=== PATIENT | female | born 1940 | race Caucasian/White ===

== ENCOUNTER 2017-06-13 15:14 | Observation (INO) | payer MEDICARE, BC ==
[2017-06-13] MEDS ORDERED: Sodium Chloride 0.9% 10 ML Syringe FLUSH PRN (15:27)
[2017-06-13] MEDS ORDERED: GI Cocktail Oral Solution 30 ML PO ONE (16:00)
[2017-06-13] MEDS ORDERED: Sodium Chloride 0.9% 500 ML IV ONE (16:08)
[2017-06-13] MEDS ORDERED: Albuterol/Ipratropium 3.0-0.5 MG/3 ML Neb Soln NEB ONE (16:08)
[2017-06-13] MEDS ORDERED: Aspirin 81 MG Tab.Chew PO ONE (16:09)
--- NOTE | 2017-06-13 16:15 | EDM.PDOC ---
ED HPI GENERAL MEDICAL PROBLEM - General Chief Complaint: Respiratory Problem Stated Complaint: epigastric pain, cough Time Seen by Provider: 06/13/17 15:46 Source of Information: Reports: Patient History Limitations: Reports: No Limitations - History of Present Illness INITIAL COMMENTS - FREE TEXT/NARRATIVE: Patient comes in complaining of epigastric pain located just below inferior margin of sternum. Pain started at 2pm this afternoon. Denies history of similar pain in past. Pain does not radiate anywhere. Pain improves with sitting straight up, worsens in other positions. Eating/drinking/burping/breathing does not change pain in any way. Feels like she has more "gas" today. Took OTC heartburn medication without change in symptoms. No palpitations. Normal appetite. HEENT: has had mild sore throat, right ear pain, congestion. All improving Resp: has had mild cough, improving GI: No significant changes/complaints. : negative for change. MS/Neuro: negative for changes. Denies fevers/chills. Has had cold type symptoms for approximately one week. had similar illness. He was seen in the clinic recently and given antibiotics. Family hx + for CAD/PR in patient's father and two brothers. Long hx of smoking. Currently 1PPD Lower Chest Pain Score (Numeric/FACES): 3 - Related Data Allergies Allergy/AdvReac Type Severity Reaction Status Date / Time No Known Allergies Allergy Verified 06/13/17 15:28 Home Meds: Home Meds Anastrozole [Arimidex] 1 mg PO 1400 10/31/14 [History] Aspirin [Halfprin] 1 tab PO DAILY 10/31/14 [History] Calcium Carbonate/Vitamin D3 [Calcium 600 + Vit D Tablet] 1 tab PO 1400 [History] Flaxseed 1 dose PO 1600 10/31/14 [History] Glucosamine/Msm/Chondroitin A [Chpwidolwcj-Jbhdxejyr-JND Cplt] 3 cap PO BID [History] Multivitamins [Tab-A-Emily] 1 tab PO DAILY 10/31/14 [History] Olmesartan/Hydrochlorothiazide [Benicar HCT 40-12.5 MG] 1 tab PO BEDTIME [History] Lafferty-3 Fatty Acids [Lafferty-3] 1 cap PO BID 10/31/14 [History] Simvastatin [Zocor] 1 tab PO BEDTIME 10/31/14 [History] Travoprost (Benzalkonium) [Travoprost 0.004% Eye Drop] 2.5 ml EYELF BEDTIME [History] amLODIPine [Norvasc] 10 mg PO DAILY 10/31/14 [History] Omeprazole 20 mg PO DAILY 06/13/17 [History] cloNIDine [Catapres] 0.1 mg PO BEDTIME 06/13/17 [History] Past Medical History Cardiovascular History: Reports: High Cholesterol, Hypertension Respiratory History: Reports: COPD Gastrointestinal History: Reports: GERD Other Oncologic History: Left side mastectomy. - Past Surgical History Other Female Surgeries/Procedures: x 2 Social & Family History - Tobacco Use Smoking Status *Q: Current Every Day Smoker Years of Tobacco use: 50 - Recreational Drug Use Recreational Drug Use: No ED ROS GENERAL - Review of Systems Review Of Systems: See Below Constitutional: Reports: No Symptoms HEENT: Reports: Ear Pain, Rhinitis, Throat Pain. Denies: Ear Discharge, Throat Swelling, Vertigo, Vision Change Respiratory: Reports: Cough. Denies: Shortness of Breath, Wheezing, Pleuritic Chest Pain, Sputum, Hemoptysis Cardiovascular: Reports: Chest Pain. Denies: Dyspnea on Exertion, Edema, Lightheadedness, Orthopnea, Palpitations, Syncope GI/Abdominal: Reports: No Symptoms : Reports: No Symptoms Musculoskeletal: Reports: No Symptoms Skin: Reports: No Symptoms Neurological: Reports: No Symptoms Psychiatric: Reports: No Symptoms Hematologic/Lymphatic: Reports: No Symptoms ED EXAM, GENERAL - Physical Exam Exam: See Below Exam Limited By: No Limitations General Appearance: Alert, No Apparent Distress, Obese Eye Exam: Bilateral Eye: EOMI, PERRL Ear Exam: Right Ear: TM Dull, Other (partially occluded by wax, appears to have otitis externa), Left Ear: Canal Normal, Bilateral Ear: Auricle Normal, TM normal Nose: Normal Inspection. No: Nasal Swelling, Nasal Drainage Throat/Mouth: Normal Inspection, Normal Lips, Normal Oropharynx, Normal Voice, No Airway Compromise, Other (Patient has some missing teeth, fillings in remaining teeth) Head: Atraumatic, Normocephalic Neck: Normal Inspection, Supple, Non-Tender, Full Range of Motion. No: Lymphadenopathy (L), Lymphadenopathy (R) Respiratory/Chest: No Respiratory Distress, Chest Non-Tender, Decreased Breath Sounds (throughout), Crackles (bilateral bases), Rales (bilateral bases), Rhonchi (bilateral, mild). No: Wheezing, Stridor, Accessory Muscle Use, Retractions Cardiovascular: Normal Peripheral Pulses, Regular Rate, Rhythm, No Edema, No JVD , No Murmur Peripheral Pulses: 2+: Radial (L), Radial (R) GI/Abdominal: Normal Bowel Sounds, Soft, No Distention, No Abnormal Bruit, No Mass, Other (Unable to reproduce/trigger patient's pain complaint with palpation in epigastric area) (Female) Exam: Deferred Rectal (Female) Exam: Deferred Back Exam: Normal Inspection. No: CVA Tenderness (L), Muscle Spasm, Paraspinal Tenderness, Vertebral Tenderness Extremities: Normal Inspection, Normal Range of Motion, Non-Tender, No Pedal Edema, Normal Capillary Refill Neurological: Alert, Oriented, CN II-XII Intact, Normal Cognition, No Motor/ Sensory Deficits Psychiatric: Normal Affect, Normal Mood Skin Exam: Warm, Dry, Intact, Normal Color EKG INTERPRETATION EKG Date: 06/13/17 Time: 15:17 Rhythm: NSR Rate (Beats/Min): 74 Delia: Normal P-Wave: Present QRS: Normal ST-T: Other (No changes suggestive of PR/ischemia) QT: Normal Comparison: NA - No Prior EKG Course - Orders/Labs/Meds Orders: Active Orders 24 hr Category Date Time Status EKG Documentation Completion [RC] ASDIRECTED Care 06/13/17 15:27 Active RT Aerosol Therapy [RC] ASDIRECTED Care 06/13/17 16:08 Ordered CXR [Chest 2V] [CR] Stat Exams 06/13/17 15:27 Taken UA W/MICROSCOPIC [URIN] Stat Lab 06/13/17 16:01 Uncollected Sodium Chloride 0.9% [Saline Flush] Med 06/13/17 15:27 Active 10 ml FLUSH ASDIRECTED PRN Saline Lock Insert [OM.PC] Routine Oth 06/13/17 15:27 Ordered Medication Orders Sodium Chloride (Saline Flush) 10 ml FLUSH ASDIRECTED PRN PRN Reason: Keep Vein Open Labs: Laboratory Tests 06/13/17 06/13/17 06/13/17 Range/Units 15:50 15:50 15:50 WBC 9.8 (4.0-10.2) K/uL RBC 5.56 H (3.77-5.09) M/uL Hgb 16.6 H D (11.7-15.5) g/dL Hct 48.7 H (34.0-46.0) % MCV 87.6 (84.0-98.0) fL MCH 29.9 (28.2-33.3) pg MCHC 34.1 (31.7-36.0) g/dL RDW 14.1 (11.2-14.1) % Plt Count 283 (150-350) K/uL Neut % (Auto) 74.1 (45.0-80.0) % Lymph % (Auto) 16.4 (10.0-50.0) % [place] % (Auto) 6.4 (2.0-14.0) % Eos % (Auto) 2.7 (0.0-5.0) % Baso % (Auto) 0.4 (0.0-2.0) % Neut # (Auto) 7.26 H (1.40-7.00) K/uL Lymph # (Auto) 1.61 (0.50-3.50) K/uL [place] # (Auto) 0.63 (0.00-1.00) K/uL Eos # (Auto) 0.26 (0.00-0.50) K/uL Baso # (Auto) 0.04 (0.00-0.20) K/uL D-Dimer, Quantitative 196 (0-400) ng/mL Sodium 132 L (136-145) mmol/L Potassium 3.7 (3.5-5.1) mmol/L Chloride 95 L (98-107) mmol/L Carbon Dioxide 30.9 (21.0-32.0) mmol/L BUN 8 (7-18) mg/dL Creatinine 0.49 L (0.51-1.17) mg/dL Est Cr Clr Drug Dosing 86.98 mL/min Estimated GFR (MDRD) > 60 mL/min Glucose 160 H (74-106) mg/dL Calcium 9.9 (8.5-10.1) mg/dL Total Bilirubin 0.5 (0.2-1.0) mg/dL AST 64 H (15-37) U/L ALT 147 H (12-78) U/L Alkaline Phosphatase 144 H (46-116) IU/L Creatine Kinase 73 (26-308) U/L Creatine Kinase Index 2.9 H (0.0-2.5) % CK-MB (CK-2) 2.10 (0.00-3.60) ng/mL Troponin I 0.009 (0.000-0.056) ng/mL Total Protein 8.2 (6.4-8.2) g/dL Albumin 4.1 (3.4-5.0) g/dL Lipase (73-393) U/L 06/13/17 Range/Units 15:50 WBC (4.0-10.2) K/uL RBC (3.77-5.09) M/uL Hgb (11.7-15.5) g/dL Hct (34.0-46.0) % MCV (84.0-98.0) fL MCH (28.2-33.3) pg MCHC (31.7-36.0) g/dL RDW (11.2-14.1) % Plt Count (150-350) K/uL Neut % (Auto) (45.0-80.0) % Lymph % (Auto) (10.0-50.0) % [place] % (Auto) (2.0-14.0) % Eos % (Auto) (0.0-5.0) % Baso % (Auto) (0.0-2.0) % Neut # (Auto) (1.40-7.00) K/uL Lymph # (Auto) (0.50-3.50) K/uL [place] # (Auto) (0.00-1.00) K/uL Eos # (Auto) (0.00-0.50) K/uL Baso # (Auto) (0.00-0.20) K/uL D-Dimer, Quantitative (0-400) ng/mL Sodium (136-145) mmol/L Potassium (3.5-5.1) mmol/L Chloride (98-107) mmol/L Carbon Dioxide (21.0-32.0) mmol/L BUN (7-18) mg/dL Creatinine (0.51-1.17) mg/dL Est Cr Clr Drug Dosing mL/min Estimated GFR (MDRD) mL/min Glucose (74-106) mg/dL Calcium (8.5-10.1) mg/dL Total Bilirubin (0.2-1.0) mg/dL AST (15-37) U/L ALT (12-78) U/L Alkaline Phosphatase (46-116) IU/L Creatine Kinase (26-308) U/L Creatine Kinase Index (0.0-2.5) % CK-MB (CK-2) (0.00-3.60) ng/mL Troponin I (0.000-0.056) ng/mL Total Protein (6.4-8.2) g/dL Albumin (3.4-5.0) g/dL Lipase 179 (73-393) U/L Meds: Medications Generic Name Dose Route Start Last Admin Trade Name Freq PRN Reason Stop Dose Admin Sodium Chloride 10 ml 06/13/17 15:27 Saline Flush FLUSH ASDIRECTED PRN Keep Vein Open Discontinued Medications Generic Name Dose Route Start Last Admin Trade Name Freq PRN Reason Stop Dose Admin Al Hydroxide/Mg Hydroxide 30 ml 06/13/17 16:00 06/13/17 16:09 Gi Cocktail PO 06/13/17 16:01 30 ml ONETIME ONE Administration Albuterol/Ipratropium 3 ml 06/13/17 16:08 06/13/17 16:12 Duoneb 3.0-0.5 Mg/3 Ml NEB 06/13/17 16:09 3 ml ONETIME ONE Administration Aspirin 324 mg 06/13/17 16:09 06/13/17 16:11 Aspirin PO 06/13/17 16:10 324 mg ONETIME ONE Administration Sodium Chloride 500 mls @ 500 mls/hr 06/13/17 16:08 06/13/17 16:16 Normal Saline IV 06/13/17 17:07 500 mls/hr ONETIME ONE Administration Pantoprazole Sodium 40 mg 06/13/17 16:42 06/13/17 17:10 Protonix Iv IVPUSH 06/13/17 16:43 40 mg ONETIME ONE Administration - Radiology Interpretation Free Text/Narrative:: Chest xray: left mastectomy. Fibrotic changes/atelectasis noted at bases, cannot exclude infiltrate. COPD. - Re-Assessments/Exams Free Text/Narrative Re-Assessment/Exam: EKG, Troponin, CKMB overall unremarkable. Patient's Hgb/Hct elevated, as was AST/ALT. She is not aware of previous liver issues or if she has fatty liver changes. Mild subjective improvement after patient received GI cocktail. She continued to maintain that the sternal discomfort was triggered/improved by movement and body position. Plan at this time is to admit patient for serial cardiac labs and cardiac monitoring. Patient has been afebrile, has a normal white count, and insists that her cold symptoms/cough have been improving. Pain does not appear to be linked to breathing/pleurisy. She does however have right otitis externa. Will start her on antibiotic drops for the OE. No systemic antibiotic therapy planned at this point. She did feel as though she had better breathing after receiving a Duo Neb. Patient mentioned that she has been thinking that she should start some sort of inhaler given her smoking/COPD but so far has avoided starting to use one. Will continue Q6h nebs while she is being observed and also begin short course Prednisone. Plan at this time will be to have round on patient tomorrow, and at that time they can discuss together starting therapy targeting COPD symptoms. The need for a stress test can also be considered if serial labs are negative for ischemia. Departure - Departure Time of Disposition: 17:16 Disposition: Refer to Observation Condition: Good Clinical Impression: Chest pain of uncertain etiology, Viral respiratory illness, S/P left mastectomy, Dyslipidemia COPD (chronic obstructive pulmonary disease) Qualifiers: COPD type: COPD with acute lower respiratory infection Qualified Code(s): J44.0 - Chronic obstructive pulmonary disease with acute lower respiratory infection HTN (hypertension) Qualifiers: Hypertension type: essential hypertension Qualified Code(s): I10 - Essential ( primary) hypertension GERD (gastroesophageal reflux disease) Qualifiers: Esophagitis presence: esophagitis presence not specified Qualified Code(s): K21.9 - Gastro-esophageal reflux disease without esophagitis Glaucoma Qualifiers: Glaucoma type: unspecified Laterality: unspecified laterality Qualified Code(s) : H40.9 - Unspecified glaucoma - Discharge Information Referrals: Armida Harrington PA [Primary Care Provider] - Forms: ED Department Discharge - Problem List & Annotations (1) Chest pain of uncertain etiology SNOMED Code(s): 78015905 Code(s): R07.89 - OTHER CHEST PAIN Status: Acute Priority: High Current Visit: Yes Onset Date: 06/13/17 Annotation/Comment:: Suspect GI vs MS cause. Pain improved with GI cocktail slightly. Waxes and wanes depending on patient's posture/movement. Initial cardiac workup unremarkable for obvious ischemia. Protonix given in ER. (2) COPD (chronic obstructive pulmonary disease) SNOMED Code(s): 95253226 Code(s): J44.9 - CHRONIC OBSTRUCTIVE PULMONARY DISEASE, UNSPECIFIED Status : Chronic Priority: High Current Visit: Yes Annotation/Comment:: Patient is 1PPD smoker and is getting over recent viral illness. Is not on any targeted therapy for COPD at home. Suspect some degree of exacerbation of baseline COPD with recent illness. Improved sensation of ease of breathing s/p neb in ER. Will continue nebs and start short course steroids. Qualifiers: COPD type: COPD with acute lower respiratory infection Qualified Code(s): J44.0 - Chronic obstructive pulmonary disease with acute lower respiratory infection (3) Viral respiratory illness SNOMED Code(s): 834840694 Code(s): J98.8 - OTHER SPECIFIED RESPIRATORY DISORDERS; B97.89 - OTH VIRAL AGENTS THE CAUSE OF DISEASES CLASSD ELSWHR Status: Acute Priority: Medium Current Visit: Yes Onset Date: ~06/06/17 Annotation/Comment:: Improving per patient. No fevers. Normal WBC. Improving cough. (4) GERD (gastroesophageal reflux disease) SNOMED Code(s): 228631409 Code(s): K21.9 - GASTRO-ESOPHAGEAL REFLUX DISEASE WITHOUT ESOPHAGITIS Status: Chronic Priority: Low Current Visit: Yes Annotation/Comment:: Patient notes that GERD worsens with stress. Recently had daughter pass away ( last month) and has had much greater stress since then. Notes that last time her stomach acted up was when sister . Discomfort improved with GI cocktail. Protonix given in ER. Qualifiers: Esophagitis presence: esophagitis presence not specified (5) Dyslipidemia SNOMED Code(s): 072021915 Code(s): E78.5 - HYPERLIPIDEMIA, UNSPECIFIED Status: Chronic Priority: Low Current Visit: No (6) Glaucoma SNOMED Code(s): 01002164 Code(s): H40.9 - UNSPECIFIED GLAUCOMA Status: Chronic Priority: Low Current Visit: No Qualifiers: Glaucoma type: unspecified Laterality: unspecified laterality Qualified Code(s): H40.9 - Unspecified glaucoma (7) HTN (hypertension) SNOMED Code(s): 95326545 Code(s): I10 - ESSENTIAL (PRIMARY) HYPERTENSION Status: Chronic Priority : Low Current Visit: Yes Annotation/Comment:: Recently had Clonidine dose changed. Relatively high systolic when first into ER and whenever she was changing position. Significant improvement in readings when she stayed put for awhile and was relaxing. Will monitor during stay in hospital and observe for trends. Qualifiers: Hypertension type: essential hypertension Qualified Code(s): I10 - Essential (primary) hypertension (8) S/P left mastectomy SNOMED Code(s): 699398765 Code(s): Z90.12 - ACQUIRED ABSENCE OF LEFT BREAST AND NIPPLE Status: Chronic Priority: Low Current Visit: Yes - Problem List Review Problem List Initiated/Reviewed/Updated: Yes - My Orders Last 24 Hours: My Active Orders 06/13/17 15:27 EKG Documentation Completion [RC] ASDIRECTED CXR [Chest 2V] [CR] Stat Sodium Chloride 0.9% [Saline Flush] 10 ml FLUSH ASDIRECTED PRN Saline Lock Insert [OM.PC] Routine 06/13/17 16:01 UA W/MICROSCOPIC [URIN] Stat 06/13/17 16:08 RT Aerosol Therapy [RC] ASDIRECTED - Assessment/Plan Admission H&P: Please use this note as an admission H&P Last 24 Hours: My Active Orders 06/13/17 15:27 EKG Documentation Completion [RC] ASDIRECTED CXR [Chest 2V] [CR] Stat Sodium Chloride 0.9% [Saline Flush] 10 ml FLUSH ASDIRECTED PRN Saline Lock Insert [OM.PC] Routine 06/13/17 16:01 UA W/MICROSCOPIC [URIN] Stat 06/13/17 16:08 RT Aerosol Therapy [RC] ASDIRECTED Assessment:: As above Plan: Admit to Observation. Telemetry. Serial troponins/CKMB. Repeat EKG in AM. Duo Nebs/Prednisone PO planned. to round on patient tomorrow. Further planning at that time, including stress test discussion as well as adding inhaler to help with worsening COPD-related issues.
[2017-06-13 16:29] LABS: CHLORIDE,CL 95 mmol/L (98-107); SODIUM,NA 132 mmol/L (136-145)
[2017-06-13] MEDS ORDERED: Pantoprazole 40 MG Vial IVPUSH ONE (16:42)
[2017-06-13] MEDS ORDERED: Calcium Carbonate 500 MG Tab.Chew PO PRN (17:38)
[2017-06-13] MEDS ORDERED: Acetaminophen 325 MG Tab PO PRN (17:38)
[2017-06-13] MEDS ORDERED: predniSONE 20 MG Tab PO ONE (17:42)
[2017-06-13] MEDS: Nicotine 21 MG/24 Hr Patch TRDERM SCH (18:06)
[2017-06-13] MEDS: Albuterol/Ipratropium 3.0-0.5 MG/3 ML Neb Soln NEB SCH (19:53)
[2017-06-13] MEDS ORDERED: TRAVOPROST EYELF SCH (20:00)
[2017-06-13] MEDS ORDERED: Hydrochlorothiazide 25 MG Tab PO SCH (20:00)
[2017-06-13] MEDS ORDERED: Olmesartan 20 MG Tab PO SCH (20:00)
[2017-06-13] MEDS ORDERED: Simvastatin 20 MG Tab PO SCH (20:00)
[2017-06-13] MEDS ORDERED: cloNIDine 0.1 MG Tab PO SCH (20:00)
[2017-06-13] MEDS ORDERED: Temazepam 15 MG Cap PO PRN (23:00)
[2017-06-14] MEDS ORDERED: Albuterol/Ipratropium 3.0-0.5 MG/3 ML Neb Soln NEB SCH
[2017-06-14] MEDS: Albuterol/Ipratropium 3.0-0.5 MG/3 ML Neb Soln NEB SCH ×2 (00:53→07:18)
[2017-06-14] MEDS: Nicotine 21 MG/24 Hr Patch TRDERM SCH (07:18)
[2017-06-14] MEDS ORDERED: predniSONE 20 MG Tab PO ONE (08:00)
[2017-06-14] MEDS ORDERED: amLODIPine 5 MG Tab PO SCH (08:00)
[2017-06-14] MEDS ORDERED: Aspirin 81 MG Tab.EC PO SCH (08:00)
[2017-06-14] MEDS ORDERED: Anastrozole 1 MG Tab PO SCH (14:00)
[2017-06-14] MEDS ORDERED: Metoprolol Tartrate 25 MG Tab PO ONE (15:00)
[2017-06-14] MEDS ORDERED: cefTRIAXone 1 GM Vial IVPUSH ONE (15:00)
--- NOTE | 2017-06-14 15:09 | PCM.PN ---
- General Info Date of Service: 06/14/17 Functional Status: Reports: Pain Controlled - Review of Systems General: Reports: No Symptoms HEENT: Reports: No Symptoms Pulmonary: Reports: No Symptoms Cardiovascular: Reports: No Symptoms Gastrointestinal: Reports: No Symptoms Genitourinary: Reports: No Symptoms Musculoskeletal: Reports: No Symptoms Skin: Reports: No Symptoms Neurological: Reports: No Symptoms Psychiatric: Reports: No Symptoms - Patient Data Vitals - Most Recent: Last Vital Signs Temp 98.4 F 06/14/17 12:00 Pulse 89 06/14/17 12:00 Resp 18 06/14/17 03:36 BP 150/67 H 06/14/17 12:00 Pulse Ox 95 06/14/17 12:00 Weight - Most Recent: 157 lb I&O - Last 24 Hours: Intake & Output 06/14/17 06/14/17 06/14/17 06:59 14:59 22:59 Intake Total 900 720 Output Total 550 360 Balance 350 360 Lab Results Last 24 Hours: Laboratory Results - last 24 hr 06/13/17 06/13/17 06/14/17 Range/Units 17:30 22:15 06:58 Creatine Kinase 71 68 (26-308) U/L Creatine Kinase Index 2.7 H 2.6 H (0.0-2.5) % CK-MB (CK-2) 1.90 1.80 (0.00-3.60) ng/mL Troponin I 0.010 0.011 (0.000-0.056) ng/mL Specimen Type Urincc Urine Color Yellow Urine Appearance Clear Urine pH 6.5 (5.0-9.0) Ur Specific [place] 1.010 (1.005-1.030) Urine Protein Negative (NEGATIVE) mg/dL Urine Glucose (UA) Negative (NEGATIVE) mg/dL Urine Ketones Negative (NEGATIVE) mg/dL Urine Occult Blood Negative (NEGATIVE) Urine Nitrite Negative (NEGATIVE) Urine Bilirubin Negative (NEGATIVE) Urine Urobilinogen 0.2 (0.2-1.0) E.U./dL Ur Leukocyte Esterase Negative (NEGATIVE) Urine RBC 0-5 /HPF Urine WBC Not seen /HPF Ur Epithelial Cells Rare /LPF Urine Bacteria Not seen (NONE TO FEW) /HPF Med Orders - Current: Current Medications Acetaminophen (Tylenol) 650 mg PO Q4H PRN PRN Reason: analgesia/fever Albuterol/Ipratropium (Duoneb 3.0-0.5 Mg/3 Ml) 3 ml NEB Q8HRRT [facility] Last Admin: 06/14/17 07:18 Dose: 3 ml Amlodipine Besylate (Norvasc) 10 mg PO DAILY [facility] Last Admin: 06/14/17 07:19 Dose: 10 mg Anastrozole (Arimidex) 1 mg PO DAILY@1400 [facility] Aspirin (Halfprin) 81 mg PO DAILY [facility] Last Admin: 06/14/17 07:19 Dose: 81 mg Calcium Carbonate/Glycine (Tums) 500 mg PO Q4H PRN PRN Reason: Dyspepsia Clonidine HCl (Catapres) 0.1 mg PO BEDTIME [facility] Last Admin: 06/13/17 19:52 Dose: 0.1 mg Hydrochlorothiazide (Hydrochlorothiazide) 12.5 mg PO BEDTIME [facility] Last Admin: 06/13/17 19:53 Dose: 12.5 mg Nicotine (Habitrol) 21 mg TRDERM DAILY [facility] Last Admin: 06/14/17 07:18 Dose: 21 mg Non-Formulary Medication (Travoprost (Benzalkonium) [Travoprost 0.004% Eye Drop] ) 2.5 ml EYELF BEDTIME [facility] Olmesartan (Benicar) 40 mg PO BEDTIME [facility] Last Admin: 06/13/17 19:52 Dose: 40 mg Simvastatin (Zocor) 20 mg PO BEDTIME [facility] Last Admin: 06/13/17 19:54 Dose: 20 mg Sodium Chloride (Saline Flush) 10 ml FLUSH ASDIRECTED PRN PRN Reason: Keep Vein Open Temazepam (Restoril) 15 mg PO BEDTIME PRN PRN Reason: Sleep Last Admin: 06/13/17 23:14 Dose: 15 mg Discontinued Medications Al Hydroxide/Mg Hydroxide (Gi Cocktail) 30 ml PO ONETIME ONE Stop: 06/13/17 16:01 Last Admin: 06/13/17 16:09 Dose: 30 ml Albuterol/Ipratropium (Duoneb 3.0-0.5 Mg/3 Ml) 3 ml NEB ONETIME ONE Stop: 06/13/17 16:09 Last Admin: 06/13/17 16:12 Dose: 3 ml Albuterol/Ipratropium (Duoneb 3.0-0.5 Mg/3 Ml) 3 ml NEB Q8HRRT [facility] Aspirin (Aspirin) 324 mg PO ONETIME ONE Stop: 06/13/17 16:10 Last Admin: 06/13/17 16:11 Dose: 324 mg Ceftriaxone Sodium (Rocephin) 1 gm IVPUSH ONETIME ONE Stop: 06/14/17 15:01 Sodium Chloride (Normal Saline) 500 mls @ 500 mls/hr IV ONETIME ONE Stop: 06/13/17 17:07 Last Admin: 06/13/17 16:16 Dose: 500 mls/hr Metoprolol Tartrate (Lopressor) 25 mg PO ONETIME ONE Stop: 06/14/17 15:01 Pantoprazole Sodium (Protonix Iv) 40 mg IVPUSH ONETIME ONE Stop: 06/13/17 16:43 Last Admin: 06/13/17 17:10 Dose: 40 mg Prednisone (Prednisone) 40 mg PO ONETIME ONE Stop: 06/13/17 17:43 Last Admin: 06/13/17 18:06 Dose: 40 mg Prednisone (Prednisone) 40 mg PO ONETIME ONE Stop: 06/14/17 08:01 Last Admin: 06/14/17 07:19 Dose: 40 mg - Exam General: Alert, Cooperative, No Acute Distress HEENT: Mucous Membr. Moist/[place] Neck: Trachea Midline, No JVD Lungs: Normal Respiratory Effort, Decreased Breath Sounds Cardiovascular: Regular Rate, Regular Rhythm GI/Abdominal Exam: Normal Bowel Sounds, Soft, Non-Tender, No Distention (Female) Exam: Deferred Back Exam: Normal Inspection Extremities: Normal Inspection, Non-Tender, No Pedal Edema Skin: Warm, Dry, Intact Neurological: No New Focal Deficit Psy/Mental Status: Alert, Normal Affect, Normal Mood - Problem List & Annotations (1) Chest pain of uncertain etiology SNOMED Code(s): 13233105 Code(s): R07.89 - OTHER CHEST PAIN Status: Acute Priority: High Current Visit: Yes Onset Date: 06/13/17 Annotation/Comment:: Suspect GI vs MS cause. Pain improved with GI cocktail slightly. Waxes and wanes depending on patient's posture/movement. Initial cardiac workup unremarkable for obvious ischemia. Protonix given in ER. (2) Otitis externa of right ear SNOMED Code(s): 6618547 Code(s): H60.91 - UNSPECIFIED OTITIS EXTERNA, RIGHT EAR Status: Acute Current Visit: Yes (3) Viral respiratory illness SNOMED Code(s): 302989808 Code(s): J98.8 - OTHER SPECIFIED RESPIRATORY DISORDERS; B97.89 - OTH VIRAL AGENTS THE CAUSE OF DISEASES CLASSD ELSWHR Status: Acute Priority: Medium Current Visit: Yes Onset Date: ~06/06/17 Annotation/Comment:: Improving per patient. No fevers. Normal WBC. Improving cough. (4) COPD (chronic obstructive pulmonary disease) SNOMED Code(s): 38939127 Code(s): J44.9 - CHRONIC OBSTRUCTIVE PULMONARY DISEASE, UNSPECIFIED Status : Chronic Priority: High Current Visit: Yes Qualifiers: COPD type: COPD with acute lower respiratory infection Qualified Code(s): J44.0 - Chronic obstructive pulmonary disease with acute lower respiratory infection Annotation/Comment:: Patient is 1PPD smoker and is getting over recent viral illness. Is not on any targeted therapy for COPD at home. Suspect some degree of exacerbation of baseline COPD with recent illness. Improved sensation of ease of breathing s/p neb in ER. Will continue nebs and start short course steroids. (5) GERD (gastroesophageal reflux disease) SNOMED Code(s): 299298553 Code(s): K21.9 - GASTRO-ESOPHAGEAL REFLUX DISEASE WITHOUT ESOPHAGITIS Status: Chronic Priority: Low Current Visit: Yes Qualifiers: Esophagitis presence: esophagitis presence not specified Qualified Code(s) : K21.9 - Gastro-esophageal reflux disease without esophagitis Annotation/Comment:: Patient notes that GERD worsens with stress. Recently had daughter pass away (last month) and has had much greater stress since then. Notes that last time her stomach acted up was when sister . Discomfort improved with GI cocktail. Protonix given in ER. (6) HTN (hypertension) SNOMED Code(s): 20768844 Code(s): I10 - ESSENTIAL (PRIMARY) HYPERTENSION Status: Chronic Priority : Low Current Visit: Yes Qualifiers: Hypertension type: essential hypertension Qualified Code(s): I10 - Essential (primary) hypertension Annotation/Comment:: Recently had Clonidine dose changed. Relatively high systolic when first into ER and whenever she was changing position. Significant improvement in readings when she stayed put for awhile and was relaxing. Will monitor during stay in hospital and observe for trends. (7) S/P left mastectomy SNOMED Code(s): 646067212 Code(s): Z90.12 - ACQUIRED ABSENCE OF LEFT BREAST AND NIPPLE Status: Chronic Priority: Low Current Visit: Yes (8) Dyslipidemia SNOMED Code(s): 264487670 Code(s): E78.5 - HYPERLIPIDEMIA, UNSPECIFIED Status: Chronic Priority: Low Current Visit: No (9) Glaucoma SNOMED Code(s): 91724305 Code(s): H40.9 - UNSPECIFIED GLAUCOMA Status: Chronic Priority: Low Current Visit: No Qualifiers: Glaucoma type: unspecified Laterality: unspecified laterality Qualified Code(s): H40.9 - Unspecified glaucoma (10) Hyponatremia SNOMED Code(s): 77724539 Code(s): E87.1 - HYPO-OSMOLALITY AND HYPONATREMIA Status: Chronic Current Visit: No - Problem List Review Problem List Initiated/Reviewed/Updated: Yes - My Orders Last 24 Hours: My Active Orders 06/14/17 15:01 Discontinue Telemetry Monitoring [Cardiac Monitoring Discontinue] [RC] Click to Edit 06/14/17 15:02 CMP [COMPREHENSIVE METABOLIC PN,CMP] [CHEM] Routine 06/14/17 15:03 CBC WITH AUTO DIFF [HEME] Routine - Plan Plan:: 06/14/2017 Becki Tatum MD Feels better. No pain. Troponin negative. Long discussion regarding blood pressure medications options and hyponatremia. Wanting and ready for discharge.
[2017-06-14 15:12] VITALS: BP 156/60
--- NOTE | 2017-06-14 15:19 | PCM.DCSUM1 ---
Discharge Summary - Discharge Data Discharge Date: 06/14/17 Discharge Disposition: Home, Self-Care 01 Condition: Good - Discharge Diagnosis/Problem(s) (1) Chest pain of uncertain etiology SNOMED Code(s): 57876270 ICD Code: R07.89 - OTHER CHEST PAIN Status: Acute Priority: High Current Visit: Yes Onset Date: 06/13/17 Problem Details: Suspect GI vs MS cause. Pain improved with GI cocktail slightly. Waxes and wanes depending on patient's posture/movement. Initial cardiac workup unremarkable for obvious ischemia. Protonix given in ER. (2) Otitis externa of right ear SNOMED Code(s): 4293685 ICD Code: H60.91 - UNSPECIFIED OTITIS EXTERNA, RIGHT EAR Status: Acute Current Visit: Yes (3) Viral respiratory illness SNOMED Code(s): 392048046 ICD Code: J98.8 - OTHER SPECIFIED RESPIRATORY DISORDERS; B97.89 - OTH VIRAL AGENTS THE CAUSE OF DISEASES CLASSD ELSWHR Status: Acute Priority: Medium Current Visit: Yes Onset Date: ~06/06/17 Problem Details: Improving per patient. No fevers. Normal WBC. Improving cough. (4) COPD (chronic obstructive pulmonary disease) SNOMED Code(s): 48192402 ICD Code: J44.9 - CHRONIC OBSTRUCTIVE PULMONARY DISEASE, UNSPECIFIED Status : Chronic Priority: High Current Visit: Yes Problem Details: Patient is 1PPD smoker and is getting over recent viral illness. Is not on any targeted therapy for COPD at home. Suspect some degree of exacerbation of baseline COPD with recent illness. Improved sensation of ease of breathing s/p neb in ER. Will continue nebs and start short course steroids. Qualifiers: COPD type: COPD with acute lower respiratory infection Qualified Code(s): J44.0 - Chronic obstructive pulmonary disease with acute lower respiratory infection (5) GERD (gastroesophageal reflux disease) SNOMED Code(s): 288444716 ICD Code: K21.9 - GASTRO-ESOPHAGEAL REFLUX DISEASE WITHOUT ESOPHAGITIS Status: Chronic Priority: Low Current Visit: Yes Problem Details: Patient notes that GERD worsens with stress. Recently had daughter pass away (last month ) and has had much greater stress since then. Notes that last time her stomach acted up was when sister . Discomfort improved with GI cocktail. Protonix given in ER. Qualifiers: Esophagitis presence: esophagitis presence not specified Qualified Code(s) : K21.9 - Gastro-esophageal reflux disease without esophagitis (6) HTN (hypertension) SNOMED Code(s): 82293096 ICD Code: I10 - ESSENTIAL (PRIMARY) HYPERTENSION Status: Chronic Priority : Low Current Visit: Yes Problem Details: Recently had Clonidine dose changed. Relatively high systolic when first into ER and whenever she was changing position. Significant improvement in readings when she stayed put for awhile and was relaxing. Will monitor during stay in hospital and observe for trends. Qualifiers: Hypertension type: essential hypertension Qualified Code(s): I10 - Essential (primary) hypertension (7) S/P left mastectomy SNOMED Code(s): 004798821 ICD Code: Z90.12 - ACQUIRED ABSENCE OF LEFT BREAST AND NIPPLE Status: Chronic Priority: Low Current Visit: Yes (8) Dyslipidemia SNOMED Code(s): 980678811 ICD Code: E78.5 - HYPERLIPIDEMIA, UNSPECIFIED Status: Chronic Priority: Low Current Visit: No (9) Glaucoma SNOMED Code(s): 23397167 ICD Code: H40.9 - UNSPECIFIED GLAUCOMA Status: Chronic Priority: Low Current Visit: No Qualifiers: Glaucoma type: unspecified Laterality: unspecified laterality Qualified Code(s): H40.9 - Unspecified glaucoma (10) Hyponatremia SNOMED Code(s): 91442790 ICD Code: E87.1 - HYPO-OSMOLALITY AND HYPONATREMIA Status: Chronic Current Visit: No - Patient Instructions Diet: Heart Healthy Diet Activity: As Tolerated Driving: May Drive Today Showering/Bathing: May Shower Other/Special Instructions: We will call you with an appointment at [facility] for next week. - Discharge Plan Prescriptions/Med Rec: Carvedilol [Coreg] 12.5 mg PO BID #90 tablet Cefuroxime [Ceftin] 500 mg PO BID #14 tablet Furosemide [Lasix] 20 mg PO BEDTIME #90 tablet Ipratropium/Albuterol Sulfate [Combivent Respimat Inhal [place]] 4 gm IH QID PRN # 3 aer.w.adap PRN Reason: Wheezing Olmesartan [Benicar] 40 mg PO BEDTIME #90 tablet Home Medications: Home Meds Anastrozole [Arimidex] 1 mg PO 1400 10/31/14 [History] Aspirin [Halfprin] 1 tab PO DAILY 10/31/14 [History] Calcium Carbonate/Vitamin D3 [Calcium 600 + Vit D Tablet] 1 tab PO 1400 [History] Flaxseed 1 dose PO 1600 10/31/14 [History] Glucosamine/Msm/Chondroitin A [Rncipvjskor-Tnandbddh-LTI Cplt] 3 cap PO BID [History] Multivitamins [Tab-A-Emily] 1 tab PO DAILY 10/31/14 [History] Lanagan-3 Fatty Acids [Lanagan-3] 1 cap PO BID 10/31/14 [History] Simvastatin [Zocor] 1 tab PO BEDTIME 10/31/14 [History] Travoprost (Benzalkonium) [Travoprost 0.004% Eye Drop] 2.5 ml EYELF BEDTIME [History] amLODIPine [Norvasc] 10 mg PO DAILY 10/31/14 [History] Omeprazole 20 mg PO DAILY 06/13/17 [History] cloNIDine [Catapres] 0.1 mg PO BEDTIME 06/13/17 [History] Calcium Carbonate [Tums] 500 mg PO Q4H PRN tab.chew 06/14/17 [Rx] Carvedilol [Coreg] 12.5 mg PO BID #90 tablet 06/14/17 [Rx] Cefuroxime [Ceftin] 500 mg PO BID #14 tablet 06/14/17 [Rx] Furosemide [Lasix] 20 mg PO BEDTIME #90 tablet 06/14/17 [Rx] Ipratropium/Albuterol Sulfate [Combivent Respimat Inhal [place]] 4 gm IH QID PRN # 3 aer.w.adap 06/14/17 [Rx] Olmesartan [Benicar] 40 mg PO BEDTIME #90 tablet 06/14/17 [Rx] Forms: ED Department Discharge Referrals: Armida Harrington PA [Primary Care Provider] - - Discharge Summary/Plan Comment DC Time >30 min.: No - Patient Data Vitals - Most Recent: Last Vital Signs Temp 98.4 F 06/14/17 12:00 Pulse 89 06/14/17 12:00 Resp 18 06/14/17 03:36 BP 150/67 H 06/14/17 12:00 Pulse Ox 95 06/14/17 12:00 Weight - Most Recent: 157 lb I&O - Last 24 hours: Intake & Output 06/14/17 06/14/17 06/14/17 06:59 14:59 22:59 Intake Total 900 720 Output Total 550 360 Balance 350 360 Lab Results - Last 24 hrs: Laboratory Results - last 24 hr 06/13/17 06/13/17 06/14/17 Range/Units 17:30 22:15 06:58 Creatine Kinase 71 68 (26-308) U/L Creatine Kinase Index 2.7 H 2.6 H (0.0-2.5) % CK-MB (CK-2) 1.90 1.80 (0.00-3.60) ng/mL Troponin I 0.010 0.011 (0.000-0.056) ng/mL Specimen Type Urincc Urine Color Yellow Urine Appearance Clear Urine pH 6.5 (5.0-9.0) Ur Specific [place] 1.010 (1.005-1.030) Urine Protein Negative (NEGATIVE) mg/dL Urine Glucose (UA) Negative (NEGATIVE) mg/dL Urine Ketones Negative (NEGATIVE) mg/dL Urine Occult Blood Negative (NEGATIVE) Urine Nitrite Negative (NEGATIVE) Urine Bilirubin Negative (NEGATIVE) Urine Urobilinogen 0.2 (0.2-1.0) E.U./dL Ur Leukocyte Esterase Negative (NEGATIVE) Urine RBC 0-5 /HPF Urine WBC Not seen /HPF Ur Epithelial Cells Rare /LPF Urine Bacteria Not seen (NONE TO FEW) /HPF Med Orders - Current: Current Medications Acetaminophen (Tylenol) 650 mg PO Q4H PRN PRN Reason: analgesia/fever Albuterol/Ipratropium (Duoneb 3.0-0.5 Mg/3 Ml) 3 ml NEB Q8HRRT [facility] Last Admin: 06/14/17 07:18 Dose: 3 ml Amlodipine Besylate (Norvasc) 10 mg PO DAILY [facility] Last Admin: 06/14/17 07:19 Dose: 10 mg Anastrozole (Arimidex) 1 mg PO DAILY@1400 [facility] Aspirin (Halfprin) 81 mg PO DAILY [facility] Last Admin: 06/14/17 07:19 Dose: 81 mg Calcium Carbonate/Glycine (Tums) 500 mg PO Q4H PRN PRN Reason: Dyspepsia Clonidine HCl (Catapres) 0.1 mg PO BEDTIME [facility] Last Admin: 06/13/17 19:52 Dose: 0.1 mg Hydrochlorothiazide (Hydrochlorothiazide) 12.5 mg PO BEDTIME [facility] Last Admin: 06/13/17 19:53 Dose: 12.5 mg Nicotine (Habitrol) 21 mg TRDERM DAILY [facility] Last Admin: 06/14/17 07:18 Dose: 21 mg Non-Formulary Medication (Travoprost (Benzalkonium) [Travoprost 0.004% Eye Drop] ) 2.5 ml EYELF BEDTIME [facility] Olmesartan (Benicar) 40 mg PO BEDTIME [facility] Last Admin: 06/13/17 19:52 Dose: 40 mg Simvastatin (Zocor) 20 mg PO BEDTIME [facility] Last Admin: 06/13/17 19:54 Dose: 20 mg Sodium Chloride (Saline Flush) 10 ml FLUSH ASDIRECTED PRN PRN Reason: Keep Vein Open Temazepam (Restoril) 15 mg PO BEDTIME PRN PRN Reason: Sleep Last Admin: 06/13/17 23:14 Dose: 15 mg Discontinued Medications Al Hydroxide/Mg Hydroxide (Gi Cocktail) 30 ml PO ONETIME ONE Stop: 06/13/17 16:01 Last Admin: 06/13/17 16:09 Dose: 30 ml Albuterol/Ipratropium (Duoneb 3.0-0.5 Mg/3 Ml) 3 ml NEB ONETIME ONE Stop: 06/13/17 16:09 Last Admin: 06/13/17 16:12 Dose: 3 ml Albuterol/Ipratropium (Duoneb 3.0-0.5 Mg/3 Ml) 3 ml NEB Q8HRRT [facility] Aspirin (Aspirin) 324 mg PO ONETIME ONE Stop: 06/13/17 16:10 Last Admin: 06/13/17 16:11 Dose: 324 mg Ceftriaxone Sodium (Rocephin) 1 gm IVPUSH ONETIME ONE Stop: 06/14/17 15:01 Sodium Chloride (Normal Saline) 500 mls @ 500 mls/hr IV ONETIME ONE Stop: 06/13/17 17:07 Last Admin: 06/13/17 16:16 Dose: 500 mls/hr Metoprolol Tartrate (Lopressor) 25 mg PO ONETIME ONE Stop: 06/14/17 15:01 Pantoprazole Sodium (Protonix Iv) 40 mg IVPUSH ONETIME ONE Stop: 06/13/17 16:43 Last Admin: 06/13/17 17:10 Dose: 40 mg Prednisone (Prednisone) 40 mg PO ONETIME ONE Stop: 06/13/17 17:43 Last Admin: 06/13/17 18:06 Dose: 40 mg Prednisone (Prednisone) 40 mg PO ONETIME ONE Stop: 06/14/17 08:01 Last Admin: 06/14/17 07:19 Dose: 40 mg *Q Meaningful Use (DIS) - VTE *Q VTE Criteria *Q: - Stroke *Q Stroke Criteria *Q: - AMI *Q AMI Criteria *Q:
[2017-06-14 15:21] LABS: CHLORIDE,CL 94 mmol/L (98-107); SODIUM,NA 132 mmol/L (136-145)
== END 2017-06-14 15:43 | disposition home or self-care (01) ==
LOC: LL.ED 15:14 → LL.MS 16:55
PROVIDERS: ADMIT Emergency Medicine; ATTEND Family Medicine
DX: R07.89 Other chest pain (principal); R05 Cough; I10 Essential (primary) hypertension; J44.0 Chronic obstructive pulmonary disease with (acute) lower respiratory infection; J22 Unspecified acute lower respiratory infection; J31.0 Chronic rhinitis; R07.0 Pain in throat; F17.210 Nicotine dependence, cigarettes, uncomplicated; E78.00 Pure hypercholesterolemia, unspecified; Z79.82 Long term (current) use of aspirin; Z79.899 Other long term (current) drug therapy; Z82.49 Family history of ischemic heart disease and other diseases of the circulatory system; K21.9 Gastro-esophageal reflux disease without esophagitis; Z90.12 Acquired absence of left breast and nipple; H60.91 Unspecified otitis externa, right ear; E78.5 Hyperlipidemia, unspecified; H40.9 Unspecified glaucoma; J98.8 Other specified respiratory disorders; B97.89 Other viral agents as the cause of diseases classified elsewhere
CPT/HCPCS: 36415; 71046; 80053; 81001; 82550; 82553; 83690; 84484; 85025; 85379; 93005; 94640; 96361; 96374; 99220; 99285; A9270-GY; C9113; G0378; J7040

== ENCOUNTER 2021-09-01 22:24 | Emergency (ER) | payer MEDICARE, BC ==
[2021-09-01 22:35] VITALS: PULSE 76
[2021-09-01] MEDS ORDERED: LORazepam 0.5 MG Tab PO ONE (23:16)
[2021-09-01 23:59] LABS: ANION GAP 12.1 meq/L (7-15); CHLORIDE,CL 103 mmol/L (98-107); SODIUM,NA 140 mmol/L (136-145)
[2021-09-02 03:25] VITALS: BP 150/82
== END 2021-09-02 00:37 | disposition home or self-care (01) ==
LOC: LL.ED 22:24
DX: F41.9 Anxiety disorder, unspecified (principal); E78.00 Pure hypercholesterolemia, unspecified; I10 Essential (primary) hypertension; J44.9 Chronic obstructive pulmonary disease, unspecified; K21.9 Gastro-esophageal reflux disease without esophagitis; Z79.82 Long term (current) use of aspirin; Z79.899 Other long term (current) drug therapy; Z72.0 Tobacco use
CPT/HCPCS: 36415; 80053; 84484; 85025; 93005; 93010; 99283-25; 99284; A9270-GY

== ENCOUNTER 2021-09-08 20:21 | Emergency (ER) | payer MEDICARE, BC ==
[2021-09-08] MEDS ORDERED: Sodium Chloride 0.9% 10 ML Syringe FLUSH PRN (20:28)
[2021-09-08] MEDS ORDERED: LORazepam 2 MG/ML SDV IVPUSH PRN (20:28)
[2021-09-08] MEDS ORDERED: Iopamidol 755 Mg/ML 100 ML Bottle ONE (20:44)
[2021-09-08 20:50] VITALS: BP 182/68; PULSE 69
== END 2021-09-08 22:30 | disposition home or self-care (01) ==
LOC: LL.ED 20:21
DX: R00.2 Palpitations (principal); R91.1 Solitary pulmonary nodule; K21.9 Gastro-esophageal reflux disease without esophagitis; I10 Essential (primary) hypertension; J44.9 Chronic obstructive pulmonary disease, unspecified; E78.00 Pure hypercholesterolemia, unspecified; Z79.82 Long term (current) use of aspirin; Z79.899 Other long term (current) drug therapy; Z72.0 Tobacco use
CPT/HCPCS: 71275; 96374; 99284; 99285-25; J2060; J3490; Q9967

== ENCOUNTER 2021-09-11 20:56 | Emergency (ER) | payer MEDICARE, BC ==
[2021-09-11] MEDS ORDERED: Nitroglycerin 0.4 MG Tab.SL ONE (21:11)
[2021-09-11] MEDS ORDERED: Aspirin 81 MG Tab.Chew ONE (21:11)
[2021-09-11] MEDS ORDERED: Sodium Chloride 0.9% 10 ML Syringe FLUSH PRN (21:22)
[2021-09-11] MEDS ORDERED: LORazepam 1 MG Tab PO ONE (21:23)
[2021-09-11 22:00] LABS: CHLORIDE,CL 96 mmol/L (98-107); SODIUM,NA 130 mmol/L (136-145)
[2021-09-11 22:01] LABS: ANION GAP 12.6 meq/L (7-15)
[2021-09-11 22:53] VITALS: BP 151/51; PULSE 52
== END 2021-09-11 22:20 | disposition home or self-care (01) ==
LOC: LL.ED 20:56
DX: I10 Essential (primary) hypertension (principal); E78.00 Pure hypercholesterolemia, unspecified; J44.9 Chronic obstructive pulmonary disease, unspecified; K21.9 Gastro-esophageal reflux disease without esophagitis; Z79.899 Other long term (current) drug therapy
CPT/HCPCS: 36415; 80053; 83735; 83880; 84100; 84443; 84484; 85025; 86140; 93010; 99283-25; 99284; A9270-GY; J3490

== ENCOUNTER 2021-10-01 20:58 | Emergency (ER) | payer MEDICARE, BC ==
[2021-10-01 21:03] VITALS: PULSE 82
[2021-10-01] MEDS: ALPRAZolam 0.25 MG Tab PO ONE (21:25)
[2021-10-01 22:20] LABS: CHLORIDE,CL 100 mmol/L (98-107); SODIUM,NA 137 mmol/L (136-145)
[2021-10-01 23:07] VITALS: BP 138/54
== END 2021-10-01 22:55 | disposition home or self-care (01) ==
LOC: LL.ED 20:58
DX: I16.0 Hypertensive urgency (principal); I10 Essential (primary) hypertension; E78.00 Pure hypercholesterolemia, unspecified; J44.9 Chronic obstructive pulmonary disease, unspecified; K21.9 Gastro-esophageal reflux disease without esophagitis; F17.210 Nicotine dependence, cigarettes, uncomplicated; Z79.82 Long term (current) use of aspirin; Z79.899 Other long term (current) drug therapy; Z72.0 Tobacco use
CPT/HCPCS: 36415; 80053; 85025; 99283; 99284; A9270

== ENCOUNTER 2021-10-29 21:21 | Emergency (ER) | payer MEDICARE, BC ==
[2021-10-29 22:39] VITALS: BP 152/53; PULSE 71
== END 2021-10-29 22:10 | disposition home or self-care (01) ==
LOC: LL.ED 21:21
DX: I10 Essential (primary) hypertension (principal); J44.9 Chronic obstructive pulmonary disease, unspecified; K21.9 Gastro-esophageal reflux disease without esophagitis; E78.00 Pure hypercholesterolemia, unspecified; F17.210 Nicotine dependence, cigarettes, uncomplicated; Z79.899 Other long term (current) drug therapy; Z79.82 Long term (current) use of aspirin
CPT/HCPCS: 99283; 99284

== ENCOUNTER 2024-03-10 16:56 | Emergency (ER) | payer MEDICARE ==
[2024-03-10 17:06] VITALS: BP 165/65; PULSE 65
[2024-03-10 17:18] LABS: BASOPHILS ABSOLUTE AUTO 0.04 K/uL (0.00-0.20); BASOPHILS PERCENT AUTO 0.5 % (0.0-2.0); EOSINOPHILS PERCENT AUTO 2.4 % (0.0-5.0); HEMATOCRIT 43.2 % (34.0-46.0); HEMOGLOBIN 14.7 g/dL (11.7-15.5); LYMPHOCYTES ABSOLUTE AUTO 1.53 K/uL (0.50-3.50); LYMPHOCYTES PERCENT AUTO 18.6 % (10.0-50.0); MEAN CORPUSCULAR HEMOGLOBIN 29.4 pg (28.2-33.3); MEAN CORPUSCULAR VOLUME 86.4 fL (84.0-98.0); MONOCYTES ABSOLUTE AUTO 0.65 K/uL (0.00-1.00); MONOCYTES PERCENT AUTO 7.9 % (2.0-14.0); NEUTROPHILS ABSOLUTE AUTO 5.81 K/uL (1.40-7.00); NEUTROPHILS PERCENT AUTO 70.6 % (45.0-80.0); PLATELET COUNT,PLT 283 K/uL (150-350); RED CELL DISTRIBUTION WIDTH 14.2 % (11.2-14.1); WHITE BLOOD CELL COUNT,WBC 8.2 K/uL (4.0-10.2)
[2024-03-10 17:34] LABS: ALANINE AMINOTRANSFERASE,ALT 40 U/L (12-78); ALBUMIN 3.9 g/dL (3.4-5.0); ALKALINE PHOSPHATASE 118 IU/L (46-116); ASPARTATE AMNIOTRANSFERASE,AST 26 U/L (15-37); BILIRUBIN TOTAL 0.6 mg/dL (0.2-1.0); BLOOD UREA NITROGEN,BUN 14 mg/dL (7-18); CALCIUM 9.9 mg/dL (8.5-10.1); CARBON DIOXIDE,CO2 27.9 mmol/L (21.0-32.0); CHLORIDE,CL 101 mmol/L (98-107); CREATININE 0.64 mg/dL (0.51-1.17); GLUCOSE RANDOM 160 mg/dL (70-99); MAGNESIUM 1.7 mg/dL (1.8-2.4); POTASSIUM,K 3.4 mmol/L (3.5-5.1); PROTEIN TOTAL,TP 7.5 g/dL (6.4-8.2); SODIUM,NA 139 mmol/L (136-145)
[2024-03-10 17:35] LABS: ANION GAP 13.5 meq/L (7-15); ESTIMATED GFR 89 mL/min (>=60)
== END 2024-03-10 18:14 | disposition home or self-care (01) ==
LOC: LL.ED 16:56
DX: I10 Essential (primary) hypertension (principal); E87.6 Hypokalemia; E83.42 Hypomagnesemia; E78.00 Pure hypercholesterolemia, unspecified; J44.9 Chronic obstructive pulmonary disease, unspecified; K21.9 Gastro-esophageal reflux disease without esophagitis; F17.210 Nicotine dependence, cigarettes, uncomplicated; Z79.899 Other long term (current) drug therapy; Z79.82 Long term (current) use of aspirin
CPT/HCPCS: 36415; 80053; 83735; 84484; 85025; 93005; 93010; 99284